=== PATIENT | female | born 1930 | race Caucasian/White ===

== ENCOUNTER → 2016-05-06 | Outpatient (CLI) | payer OTHER ==
[~2016-05-06] MED LIST: APAP650 PO; BAL B-1001 EACH PO; BENICAR HCT 201 EACH PO; CELEBREX 200 M200 MG PO; COUMADIN 5 MG TA5 M1; COUMADIN 5 MG TA5 M1 PO; COZAAR 50 MG TA50 M2 PO; CRESTOR10 MG PO; GABAPENTIN 100100 MG PO; GLUCOPHAGE XR500 MG PO; HYDROCHLOROTH12.5 M1 PO; HYDROCODON-ACE1 EAC5; HYDROCODON-ACE1 EAC5 PO; HYDROCODONE-APA1 TA1 PO; HYZAAR 100-12.1 EACH PO; IBUPROFEN 400400 M1 PO; IRON325 OR; IRON325 PO; LEVAQUIN 500 M500 M2 PO; LIPITOR10 MG PO; LIVALO2 MG PO; LOSARTAN-HCTZ1 EAC2 PO; MULTIVITAMINS PO; NEURONTIN100 MG PO; NEXIUM40 MG PO; NORCO 10-325 T1 EACH PO; PEPCID20 MG PO; SENNA8.6 MG PO; SIMVASTATIN40 MG PO; TRAMADOL 50 MG50 MG PO; TUMS CHEWA500 MG/11 PO; VITAMIN D-32000 UNIT PO; VITAMIN D1000 UNI1 PO; XARELTO10 MG PO; ZOCOR 20 MG TAB20 M1 PO
[2016-05-06 14:21] LABS: HEMATOCRIT 43.2 % (37.0-47.0); HEMOGLOBIN 14.5 gm/dL (12.0-15.0); MCH 31.3 pg (26.0-34.0); MCHC 33.6 % (28.0-37.0); MCV 93.2 fL (80.0-100.0); RBC 4.64 mil/uL (4.20-5.00); RDW 13.7 % (10.5-14.5); WBC 6.3 thou/uL (4.0-11.0)
[2016-05-06 15:22] LABS: ALBUMIN 3.7 g/dL (3.4-5.0); ALKALINE PHOSPHATASE 131 U/L (46-116); DIRECT BILIRUBIN < 0.1 mg/dL (<0.1-0.3); SGOT 19 U/L (15-37); SGPT 22 U/L (30-65); TOTAL BILIRUBIN 0.3 mg/dL (<0.1-1.0); TOTAL PROTEIN 7.2 g/dL (6.4-8.2)
[2016-05-10 16:08] LABS: BLASTOMYCES-IMMUNODIFF Negative (Neg:<1:1); COCCIDIOIDES-IMMUNODIFF Negative (Neg:<1:1); HISTOPLASMA-IMMUNODIFF Negative (Neg:<1:1)
[2016-05-11 17:12] LABS: ASPERGILLUS FLAVUS-ID Negative (Neg:<1:1); ASPERGILLUS FUMIGATUS-ID Negative (Neg:<1:1); ASPERGILLUS NIGER-ID Negative (Neg:<1:1)
== END ==
LOC: RAD 12:39
PROVIDERS: Internal Medicine Pulmonary Disease
DX: Z12.31 Encounter for screening mammogram for malignant neoplasm of breast (principal); R22.2 Localized swelling, mass and lump, trunk

== ENCOUNTER → 2017-05-11 | Outpatient (CLI) | payer OTHER | LOC: RAD 01:39 | DX: Z12.31 Encounter for screening mammogram for malignant neoplasm of breast (principal) ==

== ENCOUNTER → 2018-05-17 | Outpatient (CLI) | payer OTHER | LOC: RAD 12:59 | DX: Z12.31 Encounter for screening mammogram for malignant neoplasm of breast (principal) ==

== ENCOUNTER → 2019-06-27 | Outpatient (CLI) | payer OTHER | LOC: BC 07:30 | DX: Z12.31 Encounter for screening mammogram for malignant neoplasm of breast (principal) ==

== ENCOUNTER → 2020-06-29 | Outpatient (CLI) | payer OTHER | LOC: BC 09:51 | PROVIDERS: ATTEND Internal Medicine | DX: Z12.31 Encounter for screening mammogram for malignant neoplasm of breast (principal) ==